=== PATIENT | male | born 1995 | race Caucasian/White ===

== ENCOUNTER 2019-05-13 21:51 | Emergency (ER) | payer SELFPAY ==
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
--- NOTE | 2019-05-13 22:26 | EDPHYS ---
Physician Documentation [facility] Name: Shaista Moss III Age: 23 yrs Sex: Male : 1995 Arrival Date: 05/13/2019 Time: 21:53 Bed 8 Private MD: ED Physician Jose Alberto Lerma HPI: 05/13 22:24 This 23 yrs old Male presents to ER via Ambulatory with complaints of Sunburn.pm1 22:24 Onset: The symptoms/episode began/occurred 5 day(s) ago. Associated signs and symptoms: pm1 The patient has no apparent associated signs or symptoms, Pertinent negatives:. Modifying factors: The patient symptoms are alleviated by nothing, the patient symptoms are aggravated by touching area. The patient has experienced similar episodes in the past, multiple times. The patient has not recently seen a physician. Historical: - Allergies: 22:05 No Known Allergies; ak1 - Home Meds: 22:05 None [Active]; ak1 - PMHx: 22:05 None; ak1 - PSHx: 22:05 None; ak1 - Immunization history:: Adult Immunizations unknown. - Social history:: Smoking status: Patient uses tobacco products, smokes two packs cigarettes per day. - Ebola Screening: : No symptoms or risks identified at this time. ROS: 22:24 Constitutional: Negative for fever, chills, and weight loss, Eyes: Negative for injury, pm1 pain, redness, and discharge, ENT: Negative for injury, pain, and discharge, Neck: Negative for injury, pain, and swelling, Cardiovascular: Negative for chest pain, palpitations, and edema, Respiratory: Negative for shortness of breath, cough, wheezing, and pleuritic chest pain, Abdomen/GI: Negative for abdominal pain, nausea, vomiting, diarrhea, and constipation, Back: Negative for injury and pain, MS/Extremity: Negative for injury and deformity. 22:24 Neuro: Negative for headache, weakness, numbness, tingling, and seizure. 22:24 Skin: Positive for of the right mullen and left mullen, sun burn. Exam: 22:24 Constitutional: This is a well developed, well nourished patient who is awake, alert, pm1 and in no acute distress. Head/Face: Normocephalic, atraumatic. Chest/axilla: Normal chest wall appearance and motion. Nontender with no deformity. No lesions are appreciated. Cardiovascular: Regular rate and rhythm with a normal S1 and S2. No gallops, murmurs, or rubs. Normal PMI, no JVD. No pulse deficits. Respiratory: Lungs have equal breath sounds bilaterally, clear to auscultation and percussion. No rales, rhonchi or wheezes noted. No increased work of breathing, no retractions or nasal flaring. Back: No spinal tenderness. No costovertebral tenderness. Full range of motion. 22:24 Skin: Appearance: normal except for affected area, first degree sunburn to shins bilaterally. Vital Signs: 22:03 BP 138 / 80; Pulse 78; Resp 18; Temp 97.5; Pulse Ox 95% on R/A; Weight 145.15 kg (R); ak1 Height 6 ft. 5 in. (195.58 cm); Pain 7/10; 22:03 Body Mass Index 37.95 (145.15 kg, 195.58 cm) ak1 MDM: 22:18 Patient medically screened. [facility] 22:24 Data reviewed: vital signs. Data interpreted: Pulse oximetry: on room air is 95 %. pm1 Interpretation: normal. Counseling: I had a detailed discussion with the patient and/or guardian regarding: the historical points, exam findings, and any diagnostic results supporting the discharge/admit diagnosis, the need for outpatient follow up, to return to the emergency department if symptoms worsen or persist or if there are any questions or concerns that arise at home. Administered Medications: No medications were administered Disposition: 05/14 07:06 Co-signature as Attending Physician, Jose Alberto Lerma MD I agree with the assessment and [facility] plan of care. Disposition: 05/13/19 22:25 Discharged to Home. Impression: Sunburn. - Condition is Stable. - Discharge Instructions: Sunburn, Adult. - Prescriptions for Diclofenac Sodium 75 mg Oral Tablet Sustained Release - take 1 tablet by ORAL route 2 times per day; 30 tablet. - School release form, Work release form, Medication Reconciliation Form, Thank You Letter, Antibiotic Education, Prescription Opioid Use form. - Follow up: Emergency Department; When: As needed; Reason: Worsening of condition. Follow up: Private Physician; When: 2 - 3 days; Reason: Recheck today's complaints, Continuance of care, Re-evaluation by your physician. - Problem is new. - Symptoms have improved. Signatures: Jose Alberto Lerma MD MD cha Ballard, Brenda RN RN bb Susannah Nuñez RN RN ak1 Rayo Poe, LEORA SHOVE UP pm1 Corrections: (The following items were deleted from the chart) 05/13 22:33 22:25 05/13/2019 22:25 Discharged to Home. Impression: Sunburn. Condition is Stable. bb Forms are Medication Reconciliation Form, Thank You Letter, Antibiotic Education, Prescription Opioid Use. Follow up: Emergency Department; When: As needed; Reason: Worsening of condition. Follow up: Private Physician; When: 2 - 3 days; Reason: Recheck today's complaints, Continuance of care, Re-evaluation by your physician. Problem is new. Symptoms have improved. pm1
== END 2019-05-13 22:33 | disposition home or self-care (01) ==
LOC: ER 21:51
DX: L55.9 Sunburn, unspecified (principal); F17.210 Nicotine dependence, cigarettes, uncomplicated
CPT/HCPCS: 99282

== ENCOUNTER 2019-07-21 16:41 | Emergency (ER) | payer SELFPAY ==
--- NOTE | 2019-07-21 17:23 | EDPHYS ---
Physician Documentation [facility] Name: Shaista Moss III Age: 23 yrs Sex: Male : 1995 Arrival Date: 07/21/2019 Time: 16:44 Bed 19 Private MD: ED Physician Noah Cee HPI: 07/21 17:18 This 23 yrs old Male presents to ER via Ambulatory with complaints of rn Headache, Toothache. 17:18 The patient presents with pain. The problem is located in the left mandibular molar. rn Onset: The symptoms/episode began/occurred at an unknown time. Duration: The symptoms are continuous. Modifying factors: The symptoms are alleviated by nothing, the symptoms are aggravated by air, chewing, food. Associated signs and symptoms: Pertinent positives: pain, Pertinent negatives: fever, inability to eat, swelling. Severity of symptoms: At their worst the symptoms were moderate, in the emergency department the symptoms are unchanged. The patient has experienced similar episodes in the past. Reports has had this problem for months, not as bad as time when had abscess, reports not able to sleep for 2 nights, no fever or swelling. Doesn't have money for dentist. . Historical: - Allergies: 16:55 No Known Drug Allergies; sv - PSHx: 16:55 None; sv - Immunization history:: Adult Immunizations up to date. - Social history:: Smoking status: Patient uses tobacco products, smokes two packs cigarettes per day. - Ebola Screening: : No symptoms or risks identified at this time. - Family history:: not pertinent. - Hospitalizations: : No recent hospitalization is reported. ROS: 17:18 Constitutional: Negative for fever, chills, and weight loss, ENT: + left mandibular rn pain Neck: Negative for injury, pain, and swelling, Neuro: + headache Exam: 17:18 Constitutional: This is a well developed, well nourished patient who is awake, alert, rn appears in pain Head/Face: Normocephalic, atraumatic. Eyes: Pupils equal round and reactive to light, extra-ocular motions intact. Lids and lashes normal. Conjunctiva and sclera are non-icteric and not injected. Cornea within normal limits. Periorbital areas with no swelling, redness, or edema. ENT: + left mandibular posterior molar with erosion and deep cavity, no sign of abscess or facial swelling Neck: Trachea midline, no thyromegaly or masses palpated, and no cervical lymphadenopathy. Supple, full range of motion without nuchal rigidity, or vertebral point tenderness. No Meningismus. Vital Signs: 16:54 BP 164 / 94; Pulse 78; Resp 16; Temp 97.1; Pulse Ox 100% on R/A; Weight 145.15 kg; hb Height 6 ft. 5 in. (195.58 cm); Pain 10/10; 16:54 Body Mass Index 37.95 (145.15 kg, 195.58 cm) hb MDM: 17:04 Patient medically screened. rn 17:18 Differential diagnosis: dental caries. Data reviewed: vital signs, nurses notes, and as rn a result, I will discharge patient. Counseling: I had a detailed discussion with the patient and/or guardian regarding: the historical points, exam findings, and any diagnostic results supporting the discharge/admit diagnosis, the need for outpatient follow up, to return to the emergency department if symptoms worsen or persist or if there are any questions or concerns that arise at home. Special discussion: I discussed with the patient/guardian in detail that at this point there is no indication for admission to the hospital. It is understood, however, that if the symptoms persist or worsen the patient needs to return immediately for re-evaluation. Based on the history and exam findings, there is no indication for further emergent testing or inpatient evaluation. I discussed with the patient/guardian the need to see a dentist for further evaluation of the symptoms. Administered Medications: 17:39 Drug: TORadol - Ketorolac 15 mg Route: IM; Site: right deltoid; sv 17:56 Follow up: Response: No adverse reaction sv 17:39 Drug: Demerol 50 mg Route: IM; Site: left deltoid; sv 17:56 Follow up: Response: No adverse reaction sv Disposition: 07/21/19 17:23 Discharged to Home. Impression: Headache, Dental caries. - Condition is Stable. - Discharge Instructions: Dental Pain. - Prescriptions for Clindamycin HCl 300 mg Oral Capsule - take 1 capsule by ORAL route every 6 hours for 10 days; 40 capsule. Tylenol- Codeine #3 300-30 mg Oral Tablet - take 2 tablets by ORAL route every 6 hours As needed; 15 tablet. Ibuprofen 800 mg Oral Tablet - take 1 tablet by ORAL route every 12 hours As needed take with food; 20 tablet. - Medication Reconciliation Form, Thank You Letter, Antibiotic Education, Prescription Opioid Use form. - Follow up: Private Physician; When: As needed; Reason: Recheck today's complaints, Re-evaluation by your physician. - Problem is new. - Symptoms have improved. Signatures: Anu Reynolds RN RN sv Nieto, Roman, MD MD rn Baxter, Heather, RN RN Corrections: (The following items were deleted from the chart) 17:57 17:23 07/21/2019 17:23 Discharged to Home. Impression: Headache; Dental caries. sv Condition is Stable. Forms are Medication Reconciliation Form, Thank You Letter, Antibiotic Education, Prescription Opioid Use. Follow up: Private Physician; When: As needed; Reason: Recheck today's complaints, Re-evaluation by your physician. Problem is new. Symptoms have improved. rn
--- NOTE | 2019-07-21 17:23 | ER ---
Nurse's Notes [facility] Name: Shaista Moss III Age: 23 yrs Sex: Male : 1995 Arrival Date: 07/21/2019 Time: 16:44 Bed 19 Private MD: Diagnosis: Headache;Dental caries Presentation: 07/21 16:54 Presenting complaint: Left upper and lower molar pain x 2 days. Onset of symptoms was hb July 20, 2019. Initial Sepsis Screen: Does the patient meet any 2 criteria? No. Patient's initial sepsis screen is negative. Does the patient have a suspected source of infection? No. Patient's initial sepsis screen is negative. 16:54 Acuity: JESSE 4 hb 16:55 Transition of care: patient was not received from another setting of care. Risk sv Assessment: Do you want to hurt yourself or someone else? Patient reports no desire to harm self or others. Care prior to arrival: None. 16:55 Method Of Arrival: Ambulatory sv Historical: - Allergies: 16:55 No Known Drug Allergies; sv - PSHx: 16:55 None; sv - Immunization history:: Adult Immunizations up to date. - Social history:: Smoking status: Patient uses tobacco products, smokes two packs cigarettes per day. - Ebola Screening: : No symptoms or risks identified at this time. - Family history:: not pertinent. - Hospitalizations: : No recent hospitalization is reported. Screenin:55 Abuse screen: Denies threats or abuse. Denies injuries from another. Nutritional sv screening: No deficits noted. Tuberculosis screening: No symptoms or risk factors identified. Fall Risk None identified. Assessment: 17:35 General: Appears in no apparent distress. uncomfortable, obese, well developed, sv Behavior is calm, cooperative, appropriate for age. Pain: Complains of pain in mouth Pain currently is 10 out of 10 on a pain scale. Quality of pain is described as throbbing, Is continuous. Neuro: Level of Consciousness is awake, alert, obeys commands, Oriented to person, place, time, situation, Gait is steady, Speech is normal. Respiratory: Airway is patent Respiratory effort is even, unlabored, Respiratory pattern is regular, symmetrical. Derm: Skin is pink, warm \T\ dry. 17:56 Reassessment: Patient appears in no apparent distress at this time. No changes from sv previously documented assessment. Patient and/or family updated on plan of care and expected duration. Pain level reassessed. Patient is alert, oriented x 3, equal unlabored respirations, skin warm/dry/pink. Vital Signs: 16:54 BP 164 / 94; Pulse 78; Resp 16; Temp 97.1; Pulse Ox 100% on R/A; Weight 145.15 kg; hb Height 6 ft. 5 in. (195.58 cm); Pain 10/10; 16:54 Body Mass Index 37.95 (145.15 kg, 195.58 cm) hb ED Course: 16:44 Patient arrived in ED. mr 16:54 Anu Reynolds, RN is Primary Nurse. sv 16:55 Arm band placed on Patient placed in an exam room, on a stretcher. sv 16:55 Patient has correct armband on for positive identification. Bed in low position. Call sv light in reach. Door closed. Head of bed elevated. 17:04 Noah eCe MD is Attending Physician. rn 17:04 Triage completed. hb 17:57 No provider procedures requiring assistance completed. Patient did not have IV access sv during this emergency room visit. Administered Medications: 17:39 Drug: TORadol - Ketorolac 15 mg Route: IM; Site: right deltoid; sv 17:56 Follow up: Response: No adverse reaction sv 17:39 Drug: Demerol 50 mg Route: IM; Site: left deltoid; sv 17:56 Follow up: Response: No adverse reaction sv Outcome: 17:23 Discharge ordered by . rn 17:57 Discharged to home ambulatory, family here to take pt home sv 17:57 Condition: stable 17:57 Discharge instructions given to patient, Instructed on discharge instructions, follow up and referral plans. medication usage, Demonstrated understanding of instructions, follow-up care, medications, Prescriptions given X 3. 17:57 Patient left the ED. sv Signatures: Anu Reynolds, RN DMITRY MckeonaLinh mr Noah Cee MD MD rn Baxter, Heather, RN RN
[2019-07-21] MEDS ORDERED: MEPERIDINE HCL 50 MG/ML ONE (17:33)
[2019-07-21] MEDS ORDERED: KETOROLAC 30 MG/ML INJ ONE (17:33)
[2019-07-21 18:10] VITALS: BP 164/94; TEMP 97.1; O2SAT 100
== END 2019-07-21 17:57 | disposition home or self-care (01) ==
LOC: ER 16:41
DX: K02.9 Dental caries, unspecified (principal); F17.210 Nicotine dependence, cigarettes, uncomplicated
CPT/HCPCS: 96372; 99283; J2175

== ENCOUNTER 2019-08-27 06:26 | Emergency (ER) | payer SELFPAY ==
[2019-08-27] MEDS ORDERED: CLINDAMYCIN HCL 150 MG CAP ONE (07:46)
[2019-08-27] MEDS ORDERED: KETOROLAC 30 MG/ML INJ ONE (07:46)
--- NOTE | 2019-08-27 07:49 | ER ---
Nurse's Notes [facility] Name: Shaista Moss III Age: 23 yrs Sex: Male : 1995 Arrival Date: 08/27/2019 Time: 06:28 Bed 7 Private MD: Diagnosis: Dental caries Presentation: 08/27 06:48 Presenting complaint: Patient states: "I have this really bad tooth pain. I've been jd3 seen here before for this, but it just wont get any better. I took like 13 Tylenols about 2 hours ago and nothing seems like it is helping.". Transition of care: patient was not received from another setting of care. Onset of symptoms was August 27, 2019. Risk Assessment: Do you want to hurt yourself or someone else? Patient reports no desire to harm self or others. Initial Sepsis Screen: Does the patient meet any 2 criteria? No. Patient's initial sepsis screen is negative. Does the patient have a suspected source of infection? No. Patient's initial sepsis screen is negative. Care prior to arrival: None. 06:48 Method Of Arrival: Ambulatory j 06:48 Acuity: JESSE 3 jd3 Triage Assessment: 07:00 General: Appears in no apparent distress. uncomfortable, Behavior is cooperative, bp appropriate for age, anxious. Pain: Complains of pain in left side of head. EENT: Reports LEFT DENTAL PAIN. Neuro: No deficits noted. Cardiovascular: No deficits noted. Respiratory: No deficits noted. GI: No signs and/or symptoms were reported involving the gastrointestinal system. : No signs and/or symptoms were reported regarding the genitourinary system. Derm: No deficits noted. Musculoskeletal: No deficits noted. Historical: - Allergies: 06:49 No Known Allergies; jd3 - Home Meds: 06:49 None [Active]; jd3 - PMHx: 06:49 None; jd3 - PSHx: 06:49 None; jd3 - Immunization history:: Adult Immunizations up to date. - Social history:: Smoking status: Patient uses tobacco products, smokes one-half pack cigarettes per day, smokes one pack cigarettes per day. - Ebola Screening: : Patient negative for fever greater than or equal to 101.5 degrees Fahrenheit, and additional compatible Ebola Virus Disease symptoms. Screenin:53 Abuse screen: Denies threats or abuse. Nutritional screening: No deficits noted. jd3 Tuberculosis screening: No symptoms or risk factors identified. Fall Risk Ambulatory Aid- None/Bed Rest/Nurse Assist (0 pts). Gait- Normal/Bed Rest/Wheelchair (0 pts) Mental Status- Oriented to own ability (0 pts). Total Mustafa Fall Scale indicates No Risk (0-24 pts). Assessment: 06:50 General: Appears in no apparent distress. uncomfortable, Behavior is calm, cooperative, jd3 appropriate for age. Pain: Complains of pain in upper left third molar and lower left third molar Quality of pain is described as sharp, shooting. Neuro: Level of Consciousness is awake, alert, obeys commands, Oriented to person, place, time, situation. Cardiovascular: Capillary refill < 3 seconds Patient's skin is warm and dry. Respiratory: Airway is patent Respiratory effort is even, unlabored, Respiratory pattern is regular, symmetrical, Denies cough, shortness of breath. GI: No signs and/or symptoms were reported involving the gastrointestinal system. : No signs and/or symptoms were reported regarding the genitourinary system. EENT: Absence of teeth noted - upper left third molar (#16) and lower left third molar (#17) Reports pain in left side of head. Derm: Skin is intact, Skin is dry, Skin is normal, Skin temperature is warm. Musculoskeletal: Circulation, motion, and sensation intact. Range of motion: intact in all extremities. 08:02 Reassessment: PT D/C HOME AMBULATORY, DX WITH DENTAL CARIES. bp Vital Signs: 06:49 BP 132 / 98; Pulse 85; Resp 17 S; Temp 97.6(O); Pulse Ox 99% on R/A; Weight 145.15 kg jd3 (R); Height 6 ft. 5 in. (195.58 cm) (R); Pain 8/10; 08:03 BP 137 / 89; Pulse 79; Resp 16; Temp 97.8; Pulse Ox 99% ; bp 06:49 Body Mass Index 37.95 (145.15 kg, 195.58 cm) jd3 ED Course: 06:28 Patient arrived in ED. ds1 06:49 Triage completed. jd3 06:50 Arm band placed on. jd3 06:53 Patient has correct armband on for positive identification. Bed in low position. Call jd3 light in reach. Side rails up X 1. 07:10 Charlee Pino [facility]-C [facility]. snw 07:10 Nick Bearden MD is Attending Physician. snw 07:10 Tono Espitia, RN is Primary Nurse. bp 08:03 No provider procedures requiring assistance completed. Patient did not have IV access bp during this emergency room visit. Administered Medications: 07:50 Drug: TORadol 30 mg Route: IM; Site: left deltoid; bp 08:04 Follow up: Response: Pain is decreased bp 07:50 Drug: Clindamycin 300 mg Route: PO; bp 08:04 Follow up: Response: No adverse reaction bp Outcome: 07:48 Discharge ordered by . snw 08:04 Discharged to home ambulatory. bp 08:04 Condition: stable 08:04 Discharge instructions given to patient, Instructed on discharge instructions, follow up and referral plans. medication usage, Demonstrated understanding of instructions, follow-up care, medications, Prescriptions given X 2. 08:04 Patient left the ED. bp Signatures: Charele Pino FNP-C CPR INSTRUCTOR-José Antoniow Em Brown ds1 Brennen Hagen RN RN jTono Sanchez, RN RN bp Corrections: (The following items were deleted from the chart) 06:55 06:48 Presenting complaint: Patient states: "I have this really bad tooth pain. I've jd3 been seen here before for this, but it just wont get any better." jd3 06:55 06:48 Acuity: JESSE 4 jd3 j
--- NOTE | 2019-08-27 07:49 | EDPHYS ---
Physician Documentation [facility] Name: Shaista Moss III Age: 23 yrs Sex: Male : 1995 Arrival Date: 08/27/2019 Time: 06:28 Bed 7 Private MD: ED Physician Nick Bearden HPI: 08/27 08:05 This 23 yrs old Male presents to ER via Ambulatory with complaints of snw Toothache. 08:05 The patient presents with broken tooth/teeth. The problem is located in the lower left snw second molar (#18) and upper left second molar (#15) and lower left third molar (#17) and upper left third molar (#16). Onset: The symptoms/episode began/occurred gradually, 1 week(s) ago, and became worse and became persistent. Duration: The symptoms are continuous, and are steadily getting worse. Associated signs and symptoms: Pertinent positives: pain, swelling, mandibular. Severity of symptoms: At their worst the symptoms were moderate, in the emergency department the symptoms are unchanged. The patient has experienced similar episodes in the past, states he doesn't have the money to go to the Dentist. The patient has not recently seen a physician. Historical: - Allergies: 06:49 No Known Allergies; jd3 - Home Meds: 06:49 None [Active]; jd3 - PMHx: 06:49 None; jd3 - PSHx: 06:49 None; jd3 - Immunization history:: Adult Immunizations up to date. - Social history:: Smoking status: Patient uses tobacco products, smokes one-half pack cigarettes per day, smokes one pack cigarettes per day. - Ebola Screening: : Patient negative for fever greater than or equal to 101.5 degrees Fahrenheit, and additional compatible Ebola Virus Disease symptoms. ROS: 08:04 Constitutional: Negative for fever, chills, and weight loss, Eyes: Negative for injury, snw pain, redness, and discharge, Neck: Negative for injury, pain, and swelling, Cardiovascular: Negative for chest pain, palpitations, and edema, Respiratory: Negative for shortness of breath, cough, wheezing, and pleuritic chest pain, Abdomen/GI: Negative for abdominal pain, nausea, vomiting, diarrhea, and constipation, Back: Negative for injury and pain, : Negative for injury, bleeding, discharge, and swelling, MS/Extremity: Negative for injury and deformity, Skin: Negative for injury, rash, and discoloration, Neuro: Negative for headache, weakness, numbness, tingling, and seizure. 08:04 ENT: Positive for dental pain. Exam: 08:02 Constitutional: This is a well developed, well nourished patient who is awake, alert, snw and in no acute distress. Head/Face: Normocephalic, atraumatic. Eyes: Pupils equal round and reactive to light, extra-ocular motions intact. Lids and lashes normal. Conjunctiva and sclera are non-icteric and not injected. Cornea within normal limits. Periorbital areas with no swelling, redness, or edema. Neck: Trachea midline, no thyromegaly or masses palpated, and no cervical lymphadenopathy. Supple, full range of motion without nuchal rigidity, or vertebral point tenderness. No Meningismus. Chest/axilla: Normal chest wall appearance and motion. Nontender with no deformity. No lesions are appreciated. Cardiovascular: Regular rate and rhythm with a normal S1 and S2. No gallops, murmurs, or rubs. Normal PMI, no JVD. No pulse deficits. Respiratory: Lungs have equal breath sounds bilaterally, clear to auscultation and percussion. No rales, rhonchi or wheezes noted. No increased work of breathing, no retractions or nasal flaring. Abdomen/GI: Soft, non-tender, with normal bowel sounds. No distension or tympany. No guarding or rebound. No evidence of tenderness throughout. Back: No spinal tenderness. No costovertebral tenderness. Full range of motion. Skin: Warm, dry with normal turgor. Normal color with no rashes, no lesions, and no evidence of cellulitis. MS/ Extremity: Pulses equal, no cyanosis. Neurovascular intact. Full, normal range of motion. Neuro: Awake and alert, GCS 15, oriented to person, place, time, and situation. Cranial nerves II-XII grossly intact. Motor strength 5/5 in all extremities. Sensory grossly intact. Cerebellar exam normal. Normal gait. Psych: Awake, alert, with orientation to person, place and time. Behavior, mood, and affect are within normal limits. 08:02 ENT: External ear(s): are unremarkable, Ear canal(s): are normal, TM's: are normal, Nose: is normal, Mouth: is normal, Dental exam: dental caries, that is moderate, specifically in the upper left second molar (#15), upper left third molar (#16) and lower left second molar (#18). Vital Signs: 06:49 BP 132 / 98; Pulse 85; Resp 17 S; Temp 97.6(O); Pulse Ox 99% on R/A; Weight 145.15 kg jd3 (R); Height 6 ft. 5 in. (195.58 cm) (R); Pain 8/10; 08:03 BP 137 / 89; Pulse 79; Resp 16; Temp 97.8; Pulse Ox 99% ; bp 06:49 Body Mass Index 37.95 (145.15 kg, 195.58 cm) jd3 MDM: 07:13 Patient medically screened. snw 08:03 Data reviewed: vital signs, nurses notes. Data interpreted: Pulse oximetry: on room air snw is 99 %. Interpretation: normal. Counseling: I had a detailed discussion with the patient and/or guardian regarding: the historical points, exam findings, and any diagnostic results supporting the discharge/admit diagnosis, the presence of at least one elevated blood pressure reading (>120/80) during this emergency department visit, the need for outpatient follow up, to return to the emergency department if symptoms worsen or persist or if there are any questions or concerns that arise at home. Response to treatment: There is no appreciated change of the patient's symptoms at this time. Special discussion: I have referred the patient to see his PCP for further evaluation of high blood pressure. Based on the history and exam findings, there is no indication for further emergent testing or inpatient evaluation. I discussed with the patient/guardian the need to see a dentist for further evaluation of the symptoms. I discussed with the patient/guardian the need to see the primary care provider for further evaluation of the symptoms. Administered Medications: 07:50 Drug: TORadol 30 mg Route: IM; Site: left deltoid; bp 08:04 Follow up: Response: Pain is decreased bp 07:50 Drug: Clindamycin 300 mg Route: PO; bp 08:04 Follow up: Response: No adverse reaction bp Disposition: 08/27/19 07:48 Discharged to Home. Impression: Dental caries. - Condition is Stable. - Discharge Instructions: Dental Caries, Adult, Dental Pain, Hypertension, Diet and Dental Disease, Dental Extraction, Care After, Preventive Dental Care, Adult. - Prescriptions for Clindamycin HCl 300 mg Oral Capsule - take 1 capsule by ORAL route every 6 hours for 10 days; 40 capsule. Diclofenac Sodium 75 mg Oral Tablet Sustained Release - take 1 tablet by ORAL route 2 times per day; 30 tablet. - School release form, Work release form, Medication Reconciliation Form, Thank You Letter, Antibiotic Education, Prescription Opioid Use form. - Follow up: Emergency Department; When: As needed; Reason: Worsening of condition. Follow up: Private Physician; When: 1 - 2 days; Reason: Dental care as soon as possible. Signatures: Charlee Pino, LIZETH-C GENERAL MANAGER [employer]AND [employer]-Brennen Schaefer, RN RN Tono Olivares RN RN bp Corrections: (The following items were deleted from the chart) 08:04 07:48 08/27/2019 07:48 Discharged to Home. Impression: Dental caries. Condition is bp Stable. Forms are Medication Reconciliation Form, Thank You Letter, Antibiotic Education, Prescription Opioid Use. Follow up: Emergency Department; When: As needed; Reason: Worsening of condition. Follow up: Private Physician; When: 1 - 2 days; Reason: Dental care as soon as possible. snw
[2019-08-27 08:20] VITALS: O2SAT 99
[2019-08-27 08:23] VITALS: BP 137/89; TEMP 97.8
== END 2019-08-27 08:04 | disposition home or self-care (01) ==
LOC: ER 06:26
DX: K02.9 Dental caries, unspecified (principal); F17.210 Nicotine dependence, cigarettes, uncomplicated
CPT/HCPCS: 96372; 99283

== ENCOUNTER 2019-08-30 22:33 | Emergency (ER) | payer SELFPAY ==
[2019-08-30] MEDS ORDERED: ONDANSETRON 4 MG/2 ML VIAL ONE (23:03)
[2019-08-30] MEDS ORDERED: MORPHINE 4 MG/ML SYR ONE (23:03)
[2019-08-30 23:14] LABS: Absolute Lymphocytes (CBC) 4.8 K/uL (0.7-4.9); Basophils % 0.7 % (0-1.3); Lymphocytes % 33.9 % (15.3-44.8); MPV 8.5 fL (7.6-11.3); RBC Red Blood Cell Count 5.12 M/uL (4.33-5.43)
[2019-08-30 23:31] LABS: ALT/SGPT 31 U/L (12-78); AST/SGOT 18 U/L (15-37); Albumin 3.6 g/dL (3.4-5.0); Alkaline Phosphatase 68 U/L (45-117); BUN Blood Urea Nitrogen 12 mg/dL (7-18); Bicarbonate 28 mmol/L (21-32); Bilirubin Direct < 0.1 mg/dL (0-0.2); Bilirubin Total 0.4 mg/dL (0.2-1.0); Glucose Level 96 mg/dL (74-106); Lipase 144 U/L (73-393); Potassium 4.2 mmol/L (3.5-5.1); Protein, Total 7.2 g/dL (6.4-8.2); Sodium Level 146 mmol/L (136-145); Troponin (Emerg Dept Use Only) < 0.02 ng/mL (0.0-0.045)
--- NOTE | 2019-08-30 23:36 | ER ---
Nurse's Notes [facility] Name: Shaista Moss III Age: 23 yrs Sex: Male : 1995 Arrival Date: 08/30/2019 Time: 22:37 Bed 5 Private MD: Diagnosis: Chest pain, unspecified;Dental pain Presentation: 08/30 22:47 Presenting complaint: Patient states: I have been having chest pain for about 4 days tl1 that is worse with eating and drinking. I have also had diarrhea. I was seen here 4 days ago and prescribed medication for a tooth infection and have been feeling bad since. Transition of care: patient was not received from another setting of care. Onset of symptoms was August 26, 2019. Risk Assessment: Do you want to hurt yourself or someone else? Patient reports no desire to harm self or others. Initial Sepsis Screen: Does the patient meet any 2 criteria? No. Patient's initial sepsis screen is negative. Does the patient have a suspected source of infection? No. Patient's initial sepsis screen is negative. Care prior to arrival: None. 22:47 Method Of Arrival: Ambulatory tl1 22:47 Acuity: JESSE 3 tl1 Historical: - Allergies: 22:50 No Known Allergies; tl1 - Home Meds: 22:52 Clindamycin Oral [Active]; tl1 - PMHx: 22:50 None; tl1 - PSHx: 22:50 None; tl1 - Immunization history:: Adult Immunizations unknown. - Social history:: Smoking status: Patient uses tobacco products, smokes two packs cigarettes per day. Patient uses alcohol, occasionally. Patient/guardian denies using street drugs. - Ebola Screening: : Patient negative for fever greater than or equal to 101.5 degrees Fahrenheit, and additional compatible Ebola Virus Disease symptoms Patient denies exposure to infectious person Patient denies travel to an Ebola-affected area in the 21 days before illness onset. Screenin:40 Abuse screen: Denies threats or abuse. Denies injuries from another. Nutritional cc3 screening: No deficits noted. Tuberculosis screening: No symptoms or risk factors identified. Fall Risk Ambulatory Aid- None/Bed Rest/Nurse Assist (0 pts). Gait- Normal/Bed Rest/Wheelchair (0 pts) Mental Status- Oriented to own ability (0 pts). Assessment: 22:40 General: Appears in no apparent distress. uncomfortable, Behavior is calm, cooperative, cc3 appropriate for age. Pain: Complains of pain in central chest Pain does not radiate. Pain currently is 6 out of 10 on a pain scale. Quality of pain is described as aching, Pain began 2-3 days ago. Neuro: Level of Consciousness is awake, alert, obeys commands, Oriented to person, place, time, situation, Appropriate for age. Cardiovascular: Heart tones S1 S2 present Capillary refill < 3 seconds in bilateral fingers Patient's skin is warm and dry. Rhythm is sinus rhythm. Respiratory: Airway is patent Respiratory effort is even, unlabored, Respiratory pattern is regular, symmetrical, Breath sounds are clear bilaterally. GI: Abdomen is round obese, Bowel sounds present X 4 quads. Abd is soft and non tender X 4 quads. : No signs and/or symptoms were reported regarding the genitourinary system. EENT: No signs and/or symptoms were reported regarding the EENT system. Derm: Skin is intact, is healthy with good turgor, Skin is pink, warm \T\ dry. normal. Musculoskeletal: Circulation, motion, and sensation intact. Range of motion: intact in all extremities. 23:44 Reassessment: Patient appears in no apparent distress at this time. Patient and/or cc3 family updated on plan of care and expected duration. Pain level reassessed. Patient is alert, oriented x 3, equal unlabored respirations, skin warm/dry/pink. Patient said his chest pain's gone but his toothache is still there. Patient denies pain at this time. Patient states feeling better. Patient states symptoms have improved. 08/31 00:00 Reassessment: Patient appears in no apparent distress at this time. Patient and/or cc3 family updated on plan of care and expected duration. Pain level reassessed. Patient is alert, oriented x 3, equal unlabored respirations, skin warm/dry/pink. LEORA Poe discharged the patient home with prescriptions given. IV cannula removed and patient left ER vitally stable ad ambulatory. No valuables left in the patient's room. Patient denies pain at this time. Patient states feeling better. Patient states symptoms have improved. Vital Signs: 08/30 22:49 BP 152 / 96; Pulse 95; Resp 17; Temp 98.1(O); Pulse Ox 100% on R/A; Weight 145.15 kg; tl1 Height 6 ft. 5 in. (195.58 cm); Pain 8/10; 23:45 BP 113 / 92; Pulse 80; Resp 16 S; Pulse Ox 99% on R/A; Pain 0/10; cc3 22:49 Body Mass Index 37.95 (145.15 kg, 195.58 cm) tl1 23:45 patient said his chest pain's gone but his toothache is still there cc3 ED Course: 22:37 Patient arrived in ED. cl3 22:39 Rayo Poe NP is PHCP. pm1 22:39 Elie Barillas MD is Attending Physician. pm1 22:40 Patient has correct armband on for positive identification. Placed in gown. Bed in low cc3 position. Call light in reach. Side rails up X2. panel monitor on. Pulse ox on. NIBP on. 22:43 Pat Murray is Primary Nurse. cc3 22:49 Triage completed. tl1 22:50 Arm band placed on right wrist. tl1 22:52 EKG completed in triage. Results shown to MD. tl1 23:00 Inserted saline lock: 20 gauge in left antecubital area, using aseptic technique. Blood cc3 collected. Patient maintains SpO2 saturation greater than 95% on room air. 23:18 XRAY Chest (1 view) In Process Unspecified. EDMS 08/31 00:00 No provider procedures requiring assistance completed. IV discontinued, intact, cc3 bleeding controlled, No redness/swelling at site. Pressure dressing applied. Administered Medications: 08/30 23:10 Drug: morphine 4 mg Route: IVP; Site: left antecubital; ea 23:43 Follow up: Response: No adverse reaction; Pain is decreased; RASS: Alert and Calm (0) cc3 23:10 Drug: Zofran 4 mg Route: IVP; Site: left antecubital; ea 23:43 Follow up: Response: No adverse reaction; Nausea is decreased cc3 23:30 Drug: GI Cocktail without - (Maalox Suspension 30 ml, Lidocaine Liquid 2 % 15 cc3 ml) Route: PO; 08/31 00:00 Follow up: Response: No adverse reaction; Pain is decreased cc3 Outcome: 08/30 23:35 Discharge ordered by . pm1 11/12 00:00 Discharged to home ambulatory. cc3 Condition: stable Discharge instructions given to patient, Instructed on discharge instructions, follow up and referral plans. medication usage, Demonstrated understanding of instructions, follow-up care, medications, Prescriptions given X 3. 00:07 Patient left the ED. cc3 Signatures: Dispatcher [employer] EDMS Coreen Montez RN RN tl1 Ryao Poe NP DISTRIBUTION DISPATCHER pm1 Kindra Rios RN RN Pat Marcelo cc3 Kaley Mayen cl3
--- NOTE | 2019-08-30 23:36 | EDPHYS ---
Physician Documentation [facility] Name: Shaista Moss III Age: 23 yrs Sex: Male : 1995 Arrival Date: 08/30/2019 Time: 22:37 Bed 5 Private MD: ED Physician Elie Barillas HPI: 08/30 22:57 This 23 yrs old Male presents to ER via Ambulatory with complaints of Chest pm1 Pain. 22:57 The patient or guardian reports chest pain that is located primarily in the mid-sternal pm1 area. The pain does not radiate. Associated signs and symptoms: Pertinent positives: cough, Pertinent negatives: abdominal pain, diaphoresis, dizziness, headache, nausea, shortness of breath, vomiting. The chest pain is described as burning. Duration: The patient or guardian reports a single episode, that is still ongoing. Modifying factors: the symptoms are aggravated by drinking liquids and eating make it worse. The patient has been recently seen at the [facility] Emergency Department, last week, for unrelated complaints, dental pain. Historical: - Allergies: 22:50 No Known Allergies; tl1 - Home Meds: 22:52 Clindamycin Oral [Active]; tl1 - PMHx: 22:50 None; tl1 - PSHx: 22:50 None; tl1 - Immunization history:: Adult Immunizations unknown. - Social history:: Smoking status: Patient uses tobacco products, smokes two packs cigarettes per day. Patient uses alcohol, occasionally. Patient/guardian denies using street drugs. - Ebola Screening: : Patient negative for fever greater than or equal to 101.5 degrees Fahrenheit, and additional compatible Ebola Virus Disease symptoms Patient denies exposure to infectious person Patient denies travel to an Ebola-affected area in the 21 days before illness onset. ROS: 22:57 Constitutional: Negative for fever, chills, and weight loss, Eyes: Negative for injury, pm1 pain, redness, and discharge, Neck: Negative for injury, pain, and swelling, Respiratory: Negative for shortness of breath, cough, wheezing, and pleuritic chest pain, Abdomen/GI: Negative for abdominal pain, nausea, vomiting, diarrhea, and constipation. 22:57 Back: Negative for injury and pain. 22:57 MS/Extremity: Negative for injury and deformity, Skin: Negative for injury, rash, and discoloration. 22:57 Neuro: Negative for headache, weakness, numbness, tingling, and seizure. 22:57 ENT: Positive for dental pain, Negative for ear pain, rhinorrhea, sinus congestion, sinus pain, sore throat. 22:57 Cardiovascular: Positive for chest pain, Negative for edema, orthopnea, palpitations. Exam: 22:57 Constitutional: This is a well developed, well nourished patient who is awake, alert, pm1 and in no acute distress. Head/Face: Normocephalic, atraumatic. Eyes: Pupils equal round and reactive to light, extra-ocular motions intact. Lids and lashes normal. Conjunctiva and sclera are non-icteric and not injected. Cornea within normal limits. Periorbital areas with no swelling, redness, or edema. 22:57 Neck: Trachea midline, no thyromegaly or masses palpated, and no cervical lymphadenopathy. Supple, full range of motion without nuchal rigidity, or vertebral point tenderness. No Meningismus. Chest/axilla: Normal chest wall appearance and motion. Nontender with no deformity. No lesions are appreciated. Cardiovascular: Regular rate and rhythm with a normal S1 and S2. No gallops, murmurs, or rubs. Normal PMI, no JVD. No pulse deficits. Respiratory: Lungs have equal breath sounds bilaterally, clear to auscultation and percussion. No rales, rhonchi or wheezes noted. No increased work of breathing, no retractions or nasal flaring. Abdomen/GI: Soft, non-tender, with normal bowel sounds. No distension or tympany. No guarding or rebound. No evidence of tenderness throughout. Back: No spinal tenderness. No costovertebral tenderness. Full range of motion. Skin: Warm, dry with normal turgor. Normal color with no rashes, no lesions, and no evidence of cellulitis. MS/ Extremity: Pulses equal, no cyanosis. Neurovascular intact. Full, normal range of motion. 22:57 ENT: External ear(s): are unremarkable, Ear canal(s): are normal, TM's: are normal, Nose: is normal, Mouth: is normal, Dental exam: abscess, is not appreciated, dental caries, diffusely, gum swelling, not appreciated. 22:57 Neuro: Orientation: is normal, Motor: is normal, moves all fours. Vital Signs: 22:49 BP 152 / 96; Pulse 95; Resp 17; Temp 98.1(O); Pulse Ox 100% on R/A; Weight 145.15 kg; tl1 Height 6 ft. 5 in. (195.58 cm); Pain 8/10; 23:45 BP 113 / 92; Pulse 80; Resp 16 S; Pulse Ox 99% on R/A; Pain 0/10; cc3 22:49 Body Mass Index 37.95 (145.15 kg, 195.58 cm) tl1 23:45 patient said his chest pain's gone but his toothache is still there cc3 MDM: 22:40 Patient medically screened. pm1 23:34 Data reviewed: vital signs. Data interpreted: Pulse oximetry: on room air is 100 %. pm1 Interpretation: normal. Counseling: I had a detailed discussion with the patient and/or guardian regarding: the historical points, exam findings, and any diagnostic results supporting the discharge/admit diagnosis, lab results, radiology results, the need for outpatient follow up, to return to the emergency department if symptoms worsen or persist or if there are any questions or concerns that arise at home. 08/30 22:46 Order name: Basic Metabolic Panel; Complete Time: 23:33 pm1 08/30 22:46 Order name: CBC with Diff; Complete Time: 23:31 pm1 08/30 22:46 Order name: LFT's; Complete Time: 23:33 pm1 08/30 22:46 Order name: Troponin (emerg Dept Use Only); Complete Time: 23:33 pm1 08/30 22:46 Order name: XRAY Chest (1 view) pm1 08/30 22:46 Order name: Lipase; Complete Time: 23:33 pm1 08/30 22:46 Order name: EKG; Complete Time: 22:46 pm1 08/30 22:46 Order name: Cardiac monitoring; Complete Time: 23:10 pm1 08/30 22:46 Order name: EKG - Nurse/Tech; Complete Time: 23:10 pm1 08/30 22:46 Order name: IV Saline Lock; Complete Time: 23:10 pm1 08/30 22:46 Order name: Labs collected and sent; Complete Time: 23:10 pm1 08/30 22:46 Order name: O2 Per Protocol; Complete Time: 23:10 pm1 08/30 22:46 Order name: O2 Sat Monitoring; Complete Time: 23:10 pm1 Administered Medications: 23:10 Drug: morphine 4 mg Route: IVP; Site: left antecubital; ea 23:43 Follow up: Response: No adverse reaction; Pain is decreased; RASS: Alert and Calm (0) cc3 23:10 Drug: Zofran 4 mg Route: IVP; Site: left antecubital; ea 23:43 Follow up: Response: No adverse reaction; Nausea is decreased cc3 23:30 Drug: GI Cocktail without - (Maalox Suspension 30 ml, Lidocaine Liquid 2 % 15 cc3 ml) Route: PO; 08/31 00:00 Follow up: Response: No adverse reaction; Pain is decreased cc3 Disposition: 00:30 Co-signature as Attending Physician, Elie Barillas MD I agree with the assessment and tw4 plan of care. Disposition: 08/30/19 23:35 Discharged to Home. Impression: Chest pain, unspecified, Dental pain. - Condition is Stable. - Discharge Instructions: Nonspecific Chest Pain, Dental Pain. - Prescriptions for Pepcid 20 mg Oral Tablet - take 1 tablet by ORAL route every 12 hours for 10 days; 20 tablet. Tramadol 50 mg Oral Tablet - take 1 tablet by ORAL route every 8 hours as needed; 12 tablet. Tessalon Perles 100 mg Oral Capsule - take 1 capsule by ORAL route every 8 hours As needed; 15 capsule. - Medication Reconciliation Form, Thank You Letter, Antibiotic Education, Prescription Opioid Use form. - Follow up: Emergency Department; When: As needed; Reason: Worsening of condition. Follow up: Private Physician; When: 2 - 3 days; Reason: Recheck today's complaints, Continuance of care, Re-evaluation by your physician. - Problem is new. - Symptoms have improved. Signatures: Dispatcher [employer] EDMS Coreen Montez, RN RN tl1 Rayo Poe, TELLER HEAD TELLER HEAD pm1 Kindra Rios, RN Elie King ea, MD MD tw4 Pat Murray cc3 Corrections: (The following items were deleted from the chart) 00:07 08/30 23:35 08/30/2019 23:35 Discharged to Home. Impression: Chest pain, unspecified; cc3 Dental pain. Condition is Stable. Forms are Medication Reconciliation Form, Thank You Letter, Antibiotic Education, Prescription Opioid Use. Follow up: Emergency Department; When: As needed; Reason: Worsening of condition. Follow up: Private Physician; When: 2 - 3 days; Reason: Recheck today's complaints, Continuance of care, Re-evaluation by your physician. Problem is new. Symptoms have improved. pm1
[2019-08-30] MEDS ORDERED: LIDOCAINE VISCOUS 2% SOLN 15 ML UDC ONE (23:37)
[2019-08-30] MEDS ORDERED: MAGNE/ALUM HYDROXD 30 ML UCUP ONE (23:37)
[2019-08-31 00:39] VITALS: TEMP 98.1
[2019-08-31 00:42] VITALS: BP 113/92; O2SAT 99
--- NOTE | 2019-08-31 08:46 | EKG ---
Test Date: 2019-08-30 Test Time: 22:51:48 Sanitation Worker Cleaning Equipment: LARON MEASUREMENT RESULTS: Intervals: Rate: 79 PA: 134 QRSD: 76 QT: 332 QTc: 380 Elma: P: 46 PA: 134 QRS: 53 T: 37 INTERPRETIVE STATEMENTS: Normal sinus rhythm Normal ECG No previous ECG available for comparison Electronically Signed On 08-31-19 08:45:22 INSPECTOR BALANCE BRIDGE by Rui Robles
--- NOTE | 2019-08-31 11:02 | RAD REPORT ---
EXAM DESCRIPTION: RAD - Chest Single View - 08/30/2019 11:18 pm CLINICAL HISTORY: Chest pain COMPARISON: October 2007 TECHNIQUE: AP portable chest image was obtained 2313 hours. FINDINGS: Lungs are clear. Heart and vasculature are normal. No measurable pleural effusion and no p neumothorax. No acute bony abnormality seen. No acute aortic findings suspected. IMPRESSION: No acute cardiopulmonary process.
== END 2019-08-31 00:07 | disposition home or self-care (01) ==
LOC: ER 22:33
DX: K08.89 Other specified disorders of teeth and supporting structures (principal); F17.210 Nicotine dependence, cigarettes, uncomplicated
CPT/HCPCS: 36415; 71045; 80048; 80076; 83690; 84484; 85025; 93005; 96374; 96375; 99285; J2405

== ENCOUNTER 2021-03-06 16:58 | Emergency (ER) | payer SELFPAY ==
--- NOTE | 2021-03-06 19:31 | ER ---
Nurse's Notes [facility] Name: Shaista Moss III Age: 25 yrs Sex: Male : 1995 Arrival Date: 03/06/2021 Time: 17:03 Bed 15 Private MD: Diagnosis: Diarrhea, unspecified Presentation: 03/06 17:51 Chief complaint: Patient states: Lower abdominal cramping, diarrhea, nausea x 5 days. jl7 Coronavirus screen: Client denies travel out of the [place] in the last 14 days. diarrhea, nausea, Client presents with at least one sign or symptom that may indicate coronavirus-19. Standard/surgical mask placed on the client. Provider contacted for isolation considerations. Ebola Screen: No symptoms or risks identified at this time. Initial Sepsis Screen: Does the patient meet any 2 criteria? No. Patient's initial sepsis screen is negative. Does the patient have a suspected source of infection? No. Patient's initial sepsis screen is negative. Risk Assessment: Do you want to hurt yourself or someone else? Patient reports no desire to harm self or others. Onset of symptoms was March 01, 2021. Care prior to arrival: None. 17:51 Method Of Arrival: Ambulatory [facility] 17:51 Acuity: JESSE 3 jl7 Triage Assessment: 20:38 General: Appears in no apparent distress. comfortable, Behavior is calm, cooperative, jm8 appropriate for age. Pain:. 20:39 Pain: Complains of pain in abdomen Pain currently is 9 out of 10 on a pain scale. jm8 Quality of pain is described as aching, crampy, Pain began 5 days ago Also complains of nausea. EENT: No deficits noted. No signs and/or symptoms were reported regarding the EENT system. Neuro: No deficits noted. Level of Consciousness is awake, alert, obeys commands, Oriented to person, place, time. Cardiovascular: No deficits noted. Respiratory: No deficits noted. Airway is patent Trachea midline Respiratory effort is even, unlabored. GI: Abdomen is round Stools are reported to be loose, diarrhea. Bowel sounds present X 4 quads. Abd is soft X 4 quads Abdomen is tender to palpation X 4 quads. Reports lower abdominal pain, upper abdominal pain, diarrhea, nausea, vomiting. : No deficits noted. No signs and/or symptoms were reported regarding the genitourinary system. Derm: No deficits noted. No signs and/or symptoms reported regarding the dermatologic system. Skin is intact, is healthy with good turgor, Skin is dry, Skin is pink, warm \T\ dry. Musculoskeletal: No deficits noted. No signs and/or symptoms reported regarding the musculoskeletal system. Historical: - Allergies: 17:54 No Known Allergies; jl7 - Home Meds: 17:54 None [Active]; jl7 - PMHx: 17:54 None; jl7 - PSHx: 17:54 None; jl7 - Immunization history:: Adult Immunizations not up to date. - Social history:: Smoking status: Patient reports the use of cigarette tobacco products, smokes two packs cigarettes per day. Screenin:38 Abuse screen: Denies threats or abuse. Denies injuries from another. Nutritional 8 screening: No deficits noted. Fall Risk None identified. 20:38 Tuberculosis screening: No symptoms or risk factors identified. [facility] Vital Signs: 17:51 BP 140 / 92; Pulse 97; Resp 17; Temp 99.3; Pulse Ox 98% ; Weight 167.83 kg; Height 6 7 ft. 5 in. (195.58 cm); Pain 9/10; 21:04 BP 127 / 99; Pulse 93; Resp 16; Pulse Ox 99% on R/A; jm8 23:02 BP 125 / 81; Pulse 84; Resp 16; Pulse Ox 99% on R/A; jm8 17:51 Body Mass Index 43.88 (167.83 kg, 195.58 cm) [facility] ED Course: 17:03 Patient arrived in ED. as 17:53 Triage completed. [facility] 17:54 Arm band placed on right wrist. Patient placed in waiting room, Patient notified of jl7 wait time. 19:30 Vlad Jordan PA is PHCP. [facility] 19:30 Noah Cee MD is Attending Physician. [facility] 19:30 Patient's name was called from ER lobby. No response. Unable to locate patient. Will jl7 disposition as left without being seen by a provider. 19:50 Vlad Jordan PA is PHCP. [facility] 19:50 Noah Cee MD is Attending Physician. [facility] 19:52 Jose Alberto Lerma MD is Attending Physician. jada 20:38 Patient has correct armband on for positive identification. Bed in low position. Call jm8 light in reach. Side rails up X2. 20:41 No provider procedures requiring assistance completed. Inserted saline lock: 20 gauge maria m in left antecubital area, using aseptic technique. 23:02 IV discontinued, intact, bleeding controlled. real8 Administered Medications: No medications were administered Outcome: 19:30 Patient left the ED. phu 22:45 Discharge ordered by . tiburcio 23:02 Discharged to home ambulatory. maria m 23:02 Condition: good 23:02 Discharge instructions given to patient, Instructed on discharge instructions, follow up and referral plans. medication usage, Demonstrated understanding of instructions, follow-up care, medications, Prescriptions given X 1. 23:02 Patient left the ED. maria m Signatures: Jose Alberto Lerma MD MD cha Mickail, Joel, PA PA jmm Martinez, Amelia as Leal, Jahala, RN RN jl7 Kyrie Lake RN RN jm8
[2021-03-06 20:47] LABS: Absolute Lymphocytes (CBC) 4.1 K/uL (0.7-4.9); Basophils % 0.3 % (0-1.3); Hematocrit 45.8 % (39.6-49.0); MPV 8.5 fL (7.6-11.3); RBC Red Blood Cell Count 5.37 M/uL (4.33-5.43)
[2021-03-06 21:04] LABS: Albumin 3.8 g/dL (3.4-5.0); Bilirubin Direct 0.1 mg/dL (0-0.2); Bilirubin Total 0.5 mg/dL (0.2-1.0); Potassium 3.9 mmol/L (3.5-5.1); Protein, Total 8.1 g/dL (6.4-8.2)
--- NOTE | 2021-03-06 22:46 | EDPHYS ---
Physician Documentation [facility] Name: Shaista Moss III Age: 25 yrs Sex: Male : 1995 Arrival Date: 03/06/2021 Time: 17:03 Bed 15 Private MD: RICHI Physician Jose Alberto Lerma HPI: 03/06 20:10 This 25 yrs old Male presents to ER via Ambulatory with complaints of jmm Abdominal Pain, Diarrhea. 20:10 The patient presents with abdominal pain that is diffuse. Onset: The symptoms/episode jmm began/occurred gradually, 6 day(s) ago. The symptoms do not radiate. Associated signs and symptoms: Pertinent positives: nausea and vomiting, diarrhea. The symptoms are described as achy. Modifying factors: The symptoms are alleviated by nothing, the symptoms are aggravated by nothing. The patient has not experienced similar symptoms in the past. Historical: - Allergies: 17:54 No Known Allergies; jl7 - Home Meds: 17:54 None [Active]; jl7 - PMHx: 17:54 None; jl7 - PSHx: 17:54 None; jl7 - Immunization history:: Adult Immunizations not up to date. - Social history:: Smoking status: Patient reports the use of cigarette tobacco products, smokes two packs cigarettes per day. ROS: 20:10 Constitutional: Negative for fever, chills, and weight loss, Cardiovascular: Negative jmm for chest pain, palpitations, and edema, Respiratory: Negative for shortness of breath, cough, wheezing, and pleuritic chest pain. 20:10 Abdomen/GI: Positive for abdominal pain. 20:10 All other systems are negative. Exam: 20:10 Constitutional: This is a well developed, well nourished patient who is awake, alert, jmm and in no acute distress. Head/Face: atraumatic. Eyes: EOMI, no conjunctival erythema appreciated ENT: Moist Mucus Membranes Neck: Trachea midline, Supple Chest/axilla: Normal chest wall appearance and motion. Cardiovascular: Regular rate and rhythm. No edema appreciated Respiratory: Normal respirations, no respiratory distress appreciated Abdomen/GI: Non distended, soft Back: Normal ROM Skin: General appearance color normal MS/ Extremity: Moves all extremities, no obvious deformities appreciated, no edema noted to the lower extremities Neuro: Awake and alert, normal gait Psych: Behavior is normal, Mood is normal, Patient is cooperative and pleasant Vital Signs: 17:51 BP 140 / 92; Pulse 97; Resp 17; Temp 99.3; Pulse Ox 98% ; Weight 167.83 kg; Height 6 7 ft. 5 in. (195.58 cm); Pain 9/10; 21:04 BP 127 / 99; Pulse 93; Resp 16; Pulse Ox 99% on R/A; 8 23:02 BP 125 / 81; Pulse 84; Resp 16; Pulse Ox 99% on R/A; 8 17:51 Body Mass Index 43.88 (167.83 kg, 195.58 cm) 7 MDM: 20:10 Patient medically screened. [facility] 22:43 Data reviewed: vital signs, nurses notes. Counseling: I had a detailed discussion with tiburcio the patient and/or guardian regarding: the historical points, exam findings, and any diagnostic results supporting the discharge/admit diagnosis, lab results, radiology results, the need for outpatient follow up, to return to the emergency department if symptoms worsen or persist or if there are any questions or concerns that arise at home. ED course: Patient is alert and non toxic in appearance in the ED. Patient is advised to follow up with GI for further evaluation. patient understood and agrees with the plan of care. . 03/06 20:16 Order name: Basic Metabolic Panel [facility] 03/06 20:16 Order name: CBC with Diff [facility] 03/06 20:16 Order name: Hepatic Function [facility] 03/06 20:16 Order name: Lipase [facility] 03/06 20:16 Order name: Stool Culture [facility] 03/06 20:16 Order name: Ova And Parasites [facility] 03/06 20:16 Order name: IV Saline Lock; Complete Time: 20:37 [facility] 03/06 20:16 Order name: Labs collected and sent; Complete Time: 20:37 [facility] 03/06 20:16 Order name: Fecal Leukocyte Stain [facility] 03/06 20:50 Order name: CBC with Automated Diff; Complete Time: 21:00 [facility] 03/06 21:01 Order name: CT Abd/Pelvis - IV Contrast Only [facility] 03/06 21:04 Order name: Basic Metabolic Panel; Complete Time: 21:04 [facility] 03/06 21:04 Order name: Liver (Hepatic) Function; Complete Time: 21:04 [facility] 03/06 21:04 Order name: Azar; Complete Time: 21:04 EDMS Administered Medications: No medications were administered Disposition: 03/07 16:49 Co-signature as Attending Physician, Jose Alberto Lerma MD I agree with the assessment and [facility] plan of care. Disposition: 03/06/21 22:45 Discharged to Home. Impression: Diarrhea, unspecified. - Condition is Stable. - Discharge Instructions: Food Choices to Help Relieve Diarrhea, Adult. - Prescriptions for Bentyl 20 mg Oral Tablet - take 1 tablet by ORAL route every 6 hours As needed; 20 tablet. - Medication Reconciliation Form, Thank You Letter, Antibiotic Education, Prescription Opioid Use form. - Follow up: Private Physician; When: 2 - 3 days; Reason: Recheck today's complaints, Continuance of care, Re-evaluation by your physician. Signatures: Dispatcher [employer] RICHIRI Jose Alberto Lerma MD MD cha Mickail, Joel, PA PA jmm Leal, Jahala, RN RN jl7 Kyrie Lake RN RN jm8 Corrections: (The following items were deleted from the chart) 03/06 19:34 19:30 03/06/2021 19:30 Patient left the facility before being seen by provider. Reason real8 stated they are leaving due to wait time. [email or web address] 23:02 22:45 03/06/2021 22:45 Discharged to Home. Impression: Diarrhea, unspecified. Condition jm8 is Stable. Forms are Medication Reconciliation Form, Thank You Letter, Antibiotic Education, Prescription Opioid Use. Follow up: Private Physician; When: 2 - 3 days; Reason: Recheck today's complaints, Continuance of care, Re-evaluation by your physician. tiburcio
[2021-03-06 23:20] VITALS: TEMP 99.3
[2021-03-06 23:21] VITALS: O2SAT 99
[2021-03-06 23:23] VITALS: BP 125/81
--- NOTE | 2021-03-07 11:36 | RAD REPORT ---
EXAM DESCRIPTION: CT - Abdomen Pelvis W Contrast - 03/07/2021 7:09 am CLINICAL HISTORY 25 years Male abdominal pain, diarrhea TECHNIQUE: CT of the abdomen and pelvis using intravenous contrast. All CT scans at this facility us e dose modulation, iterative reconstruction, and/or weight based dosing when appropriate to reduce ra diation dose to as low as reasonably achievable. COMPARISON: None. FINDINGS: Lower chest: Lung bases are clear. Abdomen/Pelvis: Liver: No focal lesion. Gallbladder: No calcified stone. Pancreas: Within normal limits. Spleen: Within normal limits. Kidney: No stone or hydronephrosis. No focal lesion. Adrenal glands: Within normal limits. Vascular structures: Unremarkable. Bowel: No significant distention. Appendix: Normal. Peritoneum: No free fluid or free air. Lymph Nodes: Scattered nonspecific mesenteric lymph nodes are present. Reproductive: Unremarkable. Urinary bladder: Unremarkable. Osseous structures: Unremarkable. Soft tissues: Unremarkable. IMPRESSION: No acute findings. Electronically signed by: David Peralta MD 03/06/2021 10:40 PM CDT Due to temporary technical issues with the PACS/Fluency reporting system, reports are being signed by the in house radiologists without review as a courtesy to insure prompt reporting. The interpreting radiologist is fully responsible for the content of the report.
== END 2021-03-06 23:02 | disposition home or self-care (01) ==
LOC: ER 16:58
DX: R19.7 Diarrhea, unspecified (principal); F17.210 Nicotine dependence, cigarettes, uncomplicated
CPT/HCPCS: 36415; 74177; 80048; 80076; 83690; 85025; 87045; 87046; 87177; 87209; 89055; 99283; Q9967

== ENCOUNTER 2024-06-12 11:06 | Emergency (ER) | payer SELFPAY ==
[2024-06-12] MEDS ORDERED: NA CHLORIDE 0.9% 1,000 ML ONE (11:44)
[2024-06-12 12:04] LABS: Absolute Basophils 0.1 K/uL (0-0.5); Absolute Eosinophils 0.1 K/uL (0-0.5); Absolute Lymphocytes (CBC) 3.7 K/uL (0.7-4.9); Absolute Monocytes 1.2 K/uL (0.1-1.3); Absolute Neutrophil 8.6 K/uL (1.8-8.0); Basophils % 0.9 % (0-1.3); Eosinophils % 0.6 % (0-4.4); Hematocrit 46.1 % (39.6-49.0); Hemoglobin 15.4 g/dL (13.6-17.9); Lymphocytes % 26.9 % (15.3-44.8); MCH 29.5 pg (27.0-35.0); MCHC 33.3 g/dL (32.0-36.0); MCV 88.6 fL (80-100); MPV 8.3 fL (7.6-11.3); Monocytes % 8.6 % (3.3-12.3); Platelets 237 thou/uL (152-406); RBC Red Blood Cell Count 5.21 M/uL (4.33-5.43); Red Cell Distribution Width 13.3 % (12.1-15.2)
[2024-06-12 12:18] LABS: Albumin 3.4 g/dL (3.4-5.0); Albumin/Globulin Ratio 0.9 (1.1-1.8); Anion Gap 9.1 mEq/L (5.0-15.0); Bilirubin Total 0.3 mg/dL (0.2-1.0); Potassium 4.1 mEq/L (3.5-5.1); Protein, Total 7.4 g/dL (6.4-8.2)
[2024-06-12] MEDS ORDERED: LIDOCAINE 1% 20 ML MDV ONE (12:49)
[2024-06-12] MEDS ORDERED: KETOROLAC 30 MG/ML INJ ONE (12:50)
[2024-06-12] MEDS ORDERED: BUPIVACAINE 0.25% PF 10 ML VIAL ONE (12:50)
--- NOTE | 2024-06-12 12:59 | RAD REPORT ---
EXAM DESCRIPTION: CT - CTFBWCON CLINICAL HISTORY: left lower jaw swelling Pain and swelling COMPARISON: <Comparisons> TECHNIQUE: Axial 2 mm thick images of the face were obtained with sagittal and coronal reconstructio n images. All CT scans are performed using dose optimization technique as appropriate and may include automated exposure control or mA/KV adjustment according to patient size. FINDINGS: No acute facial bone fracture is seen.Left posterior mandibular molar demonstrates a moder ate periapical abscess. Periapical abscess measures approximately 8 mm. This is contiguous with a 21 x 7 mm periosteal odontogenic abscess along the buccal cortex of the mandible adjacent to this region . The globes and orbital contents are grossly unremarkable.Mild mucoperiosteal thickening of both maxil manuel antra. Several mildly enlarged lymph nodes are present bilaterally. IMPRESSION: 8 mm periapical abscess left posterior mandibular with adjacent 21 x 7 mm periosteal odo ntogenic abscess along the buccal cortex of the mandible.
[2024-06-12] MEDS ORDERED: dexAMETHasone 10 MG/ML VIAL ONE (13:58)
[2024-06-12] MEDS ORDERED: FENTANYL CITR 100 MCG/2 ML ONE (13:59)
[2024-06-12] MEDS ORDERED: CLINDAMYCIN 900MG/D5W 900 MG/50 ML IVPB IV ONE (13:59)
[2024-06-12] MEDS ORDERED: METRONIDAZOLE 500mg IVPB 500 MG/100 ML BAG IV ONE (13:59)
--- NOTE | 2024-06-12 14:21 | ER ---
Nurse's Notes [facility] Name: Shaista Moss III Age: 28 yrs Sex: Male : 1995 Arrival Date: 06/12/2024 Time: 11:06 Bed 5 Private MD: Diagnosis: Periapical abscess without sinus;Other specified disorders of teeth and supporting structures-left periosteal odontogenic abscess Presentation: 06/12 11:11 Chief complaint: Patient states: swelling to left jaw that began 2-3 days ago. aa5 11:11 Initial Sepsis Screen: Does the patient meet any 2 criteria? No. Patient's initial aa5 sepsis screen is negative. Does the patient have a suspected source of infection? No. Patient's initial sepsis screen is negative. Risk Assessment: Do you want to hurt yourself or someone else? Patient reports no desire to harm self or others. 11:11 Acuity: JESSE 3 aa5 11:11 Method Of Arrival: Ambulatory aa5 11:11 Coronavirus screen: At this time, the client does not indicate any symptoms associated aa5 with coronavirus-19. Ebola Screen: Patient denies travel to an Ebola-affected area in the 21 days before illness onset. Onset of symptoms was May 2024. Triage Assessment: 11:15 General: Appears uncomfortable, Behavior is calm, cooperative, appropriate for age. bp Pain: Complains of pain in left jaw. EENT: LEFT JAW SWELLING. Historical: - Allergies: 11:13 No Known Drug Allergies; ll1 - PMHx: 11:21 None; aa5 - PSHx: 11:21 None; aa5 - Immunization history:: Adult Immunizations up to date. - Infectious Disease History:: Denies. - Social history:: Smoking status: . Screenin:11 [facility] ED Fall Risk Assessment (Adult) History of falling in the last 3 months, aa5 including since admission No falls in past 3 months (0 pts) Confusion or Disorientation No (0 pts) Intoxicated or Sedated No (0 pts) Impaired Gait No (0 pts) Mobility Assist Device Used No (0 pt) Altered Elimination No (0 pt) Score/Fall Risk Level 0 - 2 = Low Risk Oriented to surroundings, Maintained a safe environment, Educated pt \T\ family on fall prevention, incl call for assistance when getting out of bed. Abuse screen: Denies threats or abuse. Nutritional screening: No deficits noted. Tuberculosis screening: No symptoms or risk factors identified. Assessment: 11:11 General: Appears comfortable, Behavior is calm, cooperative. Pain: Complains of pain in aa5 left jaw Pain currently is 5 out of 10 on a pain scale. Quality of pain is described as tender, throbbing. Neuro: Level of Consciousness is awake, alert, obeys commands, Oriented to person, place, time, situation. Cardiovascular: Patient's skin is warm and dry. Respiratory: Airway is patent Respiratory effort is even, unlabored, Respiratory pattern is regular, symmetrical. GI: No signs and/or symptoms were reported involving the gastrointestinal system. : No signs and/or symptoms were reported regarding the genitourinary system. EENT: No signs and/or symptoms were reported regarding the EENT system. Derm: Skin is pink, warm \T\ dry. Swelling noted to left jaw Abscess located on left buccal mucosa. Musculoskeletal: Range of motion: intact in all extremities. 11:51 Reassessment: Patient is alert, oriented x 3, equal unlabored respirations, skin aa5 warm/dry/pink. 13:00 Reassessment: Patient is alert, oriented x 3, equal unlabored respirations, skin aa5 warm/dry/pink. 14:00 Reassessment: Patient is alert, oriented x 3, equal unlabored respirations, skin aa5 warm/dry/pink. 15:01 Reassessment: Patient is alert, oriented x 3, equal unlabored respirations, skin aa5 warm/dry/pink. Vital Signs: 11:11 BP 105 / 49; Pulse 80; Resp 20 S; Temp 97.8(TE); Pulse Ox 97% on R/A; Weight 158.76 kg aa5 (R); Height 6 ft. 5 in. (R); 11:51 BP 106 / 66; Pulse 88; Resp 16 S; Pulse Ox 97% on R/A; aa5 13:30 BP 103 / 60; Pulse 82; Resp 19 S; Pulse Ox 99% on R/A; aa5 11:11 Body Mass Index 41.50 (158.76 kg, 195.58 cm) aa5 ED Course: 11:10 Patient arrived in ED. ra3 11:11 Arm band placed on Patient placed in an exam room, on a stretcher. aa5 11:11 Patient has correct armband on for positive identification. Bed in low position. Call aa5 light in reach. Side rails up X 1. 11:11 Pulse ox on. NIBP on. aa5 11:16 Jose Alberto Singh PA is PHCP. cp 11:16 Jose Alberto Lerma MD is Attending Physician. cp 11:17 Veronika Pedro, RN is Primary Nurse. aa5 11:22 Triage completed. aa5 11:28 No provider procedures requiring assistance completed. aa5 11:51 Initial lab(s) drawn, by me, sent to lab. Inserted saline lock: 20 gauge in right bp forearm, using aseptic technique. Blood collected. 12:50 CT Facial Bones W/ Con \T\ Mpr In Process Unspecified. EDMS 13:00 Assist provider with I \T\ D: of an abscess on left buccal mucosa Set up I\T\D tray. aa 5 Performed by Jose Alberto STARK Patient tolerated well. 14:17 Clive Guerra DDS is Referral Physician. cp 15:01 IV discontinued, intact, bleeding controlled, No redness/swelling at site. Pressure aa5 dressing applied. Administered Medications: 11:51 Drug: NS 0.9% IV 1000 ml IV at 1 bolus Per protocol; 1000 mL bolus Route: IV; Rate: 1 bp bolus; Site: right forearm; 13:00 Follow up: IV Status: Completed infusion; IV Intake: 1000ml aa5 12:55 Drug: Ketorolac IVP 15 mg IVP once Route: IVP; Site: right antecubital; aa5 13:39 Follow up: Response: No adverse reaction bp 13:00 Drug: Lidocaine Infiltration (1 %) 5 ml 5 ml Infiltration once; to bedside Volume: 5 bp ml; Route: Infiltration; 13:00 Drug: Bupivacaine Infiltration (0.5 %) 5 ml 10 ml Infiltration once Volume: 10 ml; bp Route: Infiltration; 14:00 Drug: fentaNYL (PF) IVP 50 mcg IVP once Route: IVP; Site: right antecubital; aa5 14:30 Follow up: Response: No adverse reaction aa5 14:00 Drug: Clindamycin IVPB 900 mg IVPB once over 30 mins; (mix in 50 mL) Route: IVPB; aa5 Infused Over: 30 mins; Site: right antecubital; 14:21 Follow up: Response: No adverse reaction aa5 14:30 Follow up: Response: No adverse reaction; IV Status: Completed infusion aa5 14:00 Drug: Decadron - Dexamethasone IVP 10 mg IVP once Route: IVP; Site: right antecubital; aa5 14:20 Follow up: Response: No adverse reaction aa5 14:31 Drug: metroNIDAZOLE IVPB 500 mg 100 ml IVPB once over 30 mins Volume: 100 ml; Route: aa5 IVPB; Infused Over: 30 mins; Site: right antecubital; 15:01 Follow up: Response: No adverse reaction; IV Status: Completed infusion aa5 Medication: 11:11 VIS not applicable for this client. aa5 Intake: 13:00 IV: 1000ml; Total: 1000ml. aa5 Outcome: 14:20 Discharge ordered by MD. cp 15:05 Discharged to home ambulatory, aa5 15:05 Condition: stable 15:05 Discharge instructions given to patient, Instructed on discharge instructions, follow up and referral plans. medication usage, Demonstrated understanding of instructions, follow-up care, medications, Prescriptions given X 3, 15:24 Patient left the ED. aa5 Signatures: Dispatcher [employer] EDMS Veronika Pedro RN RN aa5 Jose Alberto Singh PA PA cp Peltier, Brian, RN RN Ellie Wagner RN RN ll1 Demetria Johnson ra3 Corrections: (The following items were deleted from the chart) 11:23 11:12 Arm band placed on Patient placed in an exam room, on a stretcher, ll1 aa5 11:27 11:11 Derm: Skin is pink, warm \T\ dry. Abscess located on left buccal mucosa aa5 aa5 14:39 14:39 metroNIDAZOLE IVPB 500 mg 100 ml IVPB in right antecubital over 30 mins aa5 aa5
--- NOTE | 2024-06-12 14:21 | EDPHYS ---
Physician Documentation [facility] Name: Shaista Moss III Age: 28 yrs Sex: Male : 1995 Arrival Date: 06/12/2024 Time: 11:06 Bed 5 Private MD: ED Physician Jose Alberto Lerma HPI: 06/12 11:30 This 28 yrs old Male presents to ER via Ambulatory with complaints of Facial Swelling. cp 11:30 The patient presents with pain, swelling. The problem is located in the left lower jaw. cp 11:30 Onset: The symptoms/episode began/occurred 2 day(s) ago. Duration: The symptoms are cp continuous, and are steadily getting worse. Modifying factors: the symptoms are aggravated by chewing. Associated signs and symptoms: Pertinent negatives: anorexia, fever, inability to eat. Severity of symptoms: in the emergency department the symptoms are unchanged, despite home interventions. Historical: - Allergies: 11:13 No Known Drug Allergies; ll1 - PMHx: 11:21 None; aa5 - PSHx: 11:21 None; aa5 - Immunization history:: Adult Immunizations up to date. - Infectious Disease History:: Denies. - Social history:: Smoking status: . ROS: 11:35 Constitutional: Negative for body aches, chills, fever, poor PO intake, cp 11:35 ENT: Positive for dental pain, left lower jaw swelling, Negative for drainage from cp ear(s), ear pain, difficulty swallowing, difficulty handling secretions, hoarseness, 11:35 Cardiovascular: Negative for chest pain, palpitations, 11:35 Respiratory: Negative for cough, shortness of breath, wheezing, 11:35 Abdomen/GI: Negative for abdominal pain, vomiting, diarrhea, constipation, 11:35 Neuro: Negative for altered mental status, dizziness, headache, weakness, 11:35 All other systems are negative, Exam: 11:40 Constitutional: The patient appears in no acute distress, alert, awake, cp non-diaphoretic, non-toxic, well developed, well nourished, uncomfortable, 11:40 Head/face: Noted is swelling, of the left lower jaw, tenderness, that is mild, cp 11:40 Eyes: Periorbital structures: appear normal, Conjunctiva: normal, no exudate, no injection, Sclera: no appreciated abnormality, Lids and lashes: appear normal, bilaterally, 11:40 ENT: External ear(s): are unremarkable, Ear canal(s): are normal, clear, TM's: dullness, bilaterally, Nose: is normal, Mouth: Lips: moist, Oral mucosa: Tongue: is normal, Posterior pharynx: Airway: no evidence of obstruction, patent, erythema, is not appreciated, exudate, is not appreciated, Dental exam: abscess, specifically in the left lower jaw lateral gumline, pain, that is moderate, specifically in the lower left second molar (#18) and lower left first molar (#19), Voice: is normal, 11:40 Neck: ROM/movement: is normal, is supple, without pain, no range of motions limitations, no meningismus, no nuchal rigidity, 11:40 Chest/axilla: Inspection: normal, 11:40 Cardiovascular: Rate: normal, Rhythm: regular, 11:40 Respiratory: the patient does not display signs of respiratory distress, Respirations: normal, no use of accessory muscles, no retractions, labored breathing, is not present, Breath sounds: are clear throughout, no decreased breath sounds, no stridor, no wheezing, 11:40 Abdomen/GI: Inspection: abdomen appears normal, 11:40 Skin: no rash present. Vital Signs: 11:11 BP 105 / 49; Pulse 80; Resp 20 S; Temp 97.8(TE); Pulse Ox 97% on R/A; Weight 158.76 kg aa5 (R); Height 6 ft. 5 in. (R); 11:51 BP 106 / 66; Pulse 88; Resp 16 S; Pulse Ox 97% on R/A; aa5 13:30 BP 103 / 60; Pulse 82; Resp 19 S; Pulse Ox 99% on R/A; aa5 11:11 Body Mass Index 41.50 (158.76 kg, 195.58 cm) aa5 Procedures: 14:30 I \T\ D: Incision and drainage was performed for an abscess of the left lower outer cp gumline Anesthetized with mandibular block with 5cc mixture 1% lidocaine and 0.5% marcaine. Incised with 18 gauge needle used to aspirate 1 cc pus colored drainage. the patient tolerated the procedure well. MDM: 11:16 Patient medically screened. 14:20 Data reviewed: vital signs, nurses notes, lab test result(s), radiologic studies, CT cp scan, and as a result, I will discharge patient. 14:20 Consideration of Admission/Observation Escalation of care including cp admission/observation considered. I considered the following discharge prescriptions or medication management in the emergency department Medications were administered in the Emergency Department. See 11:34 Order name: CBC with Diff; Complete Time: 12:25 cp 06/12 14:14 Interpretation: Normal except: WBC 13.70. cp 06/12 11:34 Order name: CMP; Complete Time: 12:25 cp 06/12 14:14 Interpretation: Normal except: CL 111; GLUC 116; GLOB 4.0; A/G 0.9. cp 06/12 11:34 Order name: Lactate w/ 2H reflex if indic.; Complete Time: 12:25 cp 06/12 11:20 Order name: CT Facial Bones W/ Con \T\ Mpr; Complete Time: 13:08 cp 06/12 11:34 Order name: IV; Complete Time: 11:51 cp Administered Medications: 11:51 Drug: NS 0.9% IV 1000 ml IV at 1 bolus Per protocol; 1000 mL bolus Route: IV; Rate: 1 bp bolus; Site: right forearm; 13:00 Follow up: IV Status: Completed infusion; IV Intake: 1000ml aa5 12:55 Drug: Ketorolac IVP 15 mg IVP once Route: IVP; Site: right antecubital; aa5 13:39 Follow up: Response: No adverse reaction bp 13:00 Drug: Lidocaine Infiltration (1 %) 5 ml 5 ml Infiltration once; to bedside Volume: 5 bp ml; Route: Infiltration; 13:00 Drug: Bupivacaine Infiltration (0.5 %) 5 ml 10 ml Infiltration once Volume: 10 ml; bp Route: Infiltration; 14:00 Drug: fentaNYL (PF) IVP 50 mcg IVP once Route: IVP; Site: right antecubital; aa5 14:30 Follow up: Response: No adverse reaction aa5 14:00 Drug: Clindamycin IVPB 900 mg IVPB once over 30 mins; (mix in 50 mL) Route: IVPB; aa5 Infused Over: 30 mins; Site: right antecubital; 14:21 Follow up: Response: No adverse reaction aa5 14:30 Follow up: Response: No adverse reaction; IV Status: Completed infusion aa5 14:00 Drug: Decadron - Dexamethasone IVP 10 mg IVP once Route: IVP; Site: right antecubital; aa5 14:20 Follow up: Response: No adverse reaction aa5 14:31 Drug: metroNIDAZOLE IVPB 500 mg 100 ml IVPB once over 30 mins Volume: 100 ml; Route: aa5 IVPB; Infused Over: 30 mins; Site: right antecubital; 15:01 Follow up: Response: No adverse reaction; IV Status: Completed infusion aa5 Disposition Summary: 06/12/24 14:20 Discharge Ordered Notes: Location: Home cp Problem: new cp Symptoms: have improved cp Condition: Stable cp Diagnosis - Periapical abscess without sinus cp - Other specified disorders of teeth and supporting structures - left periosteal cp odontogenic abscess Followup: cp - With: Clive Guerra DDS - When: 1 week - Reason: Recheck today's complaints Discharge Instructions: - Discharge Summary Sheet cp - Dental Abscess cp - Dental Pain cp - Diet and Dental Disease cp Forms: - Medication Reconciliation Form cp - Antibiotic Education cp - Prescription Opioid Use cp - Patient Portal Instructions cp - Leadership Thank You Letter cp Prescriptions: - Anaprox DS 550 mg Oral Tablet - take 1 tablet ORAL route every 12 hours As needed; 20 tablet; Refills: 0, cp Product Selection Permitted - Clindamycin HCl 300 mg Oral Capsule - take 1 capsule ORAL route every 6 hours for 10 days; 40 capsule; Refills: 0, cp Product Selection Permitted - Metronidazole 500 mg Oral Tablet - take 1 tablet ORAL route every 8 hours; 30 tablet; Refills: 0, Product cp Selection Permitted Addendum: 06/23/2024 04:46 Co-signature as Attending Physician, Jose Alberto Lerma MD I agree with the assessment and c basurto plan of care. Signatures: Dispatcher [employer] Jose Alberto Keating MD MD cha Calderon, Audri, RN RN aa5 Jose Alberto Singh PA PA cp Peltier, Brian, RN RN Ellie Wagner RN RN ll1
[2024-06-12 15:28] VITALS: BP 105/49; TEMP 97.8; O2SAT 97
== END 2024-06-12 15:24 | disposition home or self-care (01) ==
LOC: ER 11:06
PROC: 0C96XZZ Drainage of Lower Gingiva, External Approach (ICD-10-PCS; principal; 2024-06-12)
DX: K04.7 Periapical abscess without sinus (principal)
CPT/HCPCS: 36415; 70487; 76377; 80053; 83605; 85025; 96361; 96365; 96367; 96375; 99285; J1100; J2001; J3010; J7030; Q9967